=== PATIENT | male | born 1965 | race Caucasian/White ===

== ENCOUNTER → 2016-07-07 | Outpatient (CLI) | payer OTHER ==
[~2016-07-07] MED LIST: HABITROL 21 MG P1 EA TOP; LOPRESSOR 25 MG25 MG PO; PROTONIX40 MG PO
== END ==
LOC: KOH-I 08:30
DX: M24.571 Contracture, right ankle (principal)
CPT/HCPCS: 73721

== ENCOUNTER → 2021-07-07 | Outpatient (CLI) | payer OTHER ==
[~2021-07-07] MED LIST changes: +FELDENE10 MG PO
== END ==
LOC: EMI 07-04 16:00
DX: M51.16 Intervertebral disc disorders with radiculopathy, lumbar region (principal); M48.061 Spinal stenosis, lumbar region without neurogenic claudication; M47.817 Spondylosis without myelopathy or radiculopathy, lumbosacral region
CPT/HCPCS: 72148

== ENCOUNTER → 2021-07-11 | Outpatient (CLI) | payer OTHER | LOC: KOH-I 16:02 | DX: M79.641 Pain in right hand (principal); M79.642 Pain in left hand; J44.9 Chronic obstructive pulmonary disease, unspecified; M19.042 Primary osteoarthritis, left hand; M19.041 Primary osteoarthritis, right hand; M19.032 Primary osteoarthritis, left wrist; M19.031 Primary osteoarthritis, right wrist | CPT/HCPCS: 71046; 73130 ==

== ENCOUNTER 2021-12-29 19:15 | Emergency (ER) | payer OTHER ==
[2021-12-29] MEDS ORDERED: IBUPROFEN600 MG PO (20:24)
== END 2021-12-29 20:50 | disposition home or self-care (01) ==
LOC: ER1 19:15
DX: S93.401A Sprain of unspecified ligament of right ankle, initial encounter (principal); F17.210 Nicotine dependence, cigarettes, uncomplicated; X58.XXXA Exposure to other specified factors, initial encounter
CPT/HCPCS: 73610; 96372; 99283; J1885